=== PATIENT | female | born 2000 | race African-American/Black ===

== ENCOUNTER 2022-05-04 21:57 | Inpatient (IN) ==
[2022-05-04] MEDS ORDERED: ceFAZolin 1,000 MG VIAL ONE (22:09)
[2022-05-04] MEDS ORDERED: SODIUM CHLORIDE 0.9% 1,000 ML IV STA (22:13)
[2022-05-04] MEDS ORDERED: DIPH/TET/ACEL PERT BOOSTER VACCINE 0.5 ML VIAL IM ONE (22:13)
[2022-05-04] MEDS ORDERED: SODIUM CHLORIDE 0.9% 100 ML IV ONE (22:16)
[2022-05-04 22:20] LABS: Basophils % 0.4 % (0.0-0.8); Eosinophils # 0.3 10*3/uL (0.0-0.87); Eosinophils % 3.1 % (0.00-10.9); Immature Granulocytes % 0.2 %; Immature Granulocytes Absolute 0.02 #; Lymphocytes # 5.4 10*3/uL (1.4-4.0); Lymphocytes % 60.1 % (21.3-54.2); Mean Corpuscular HGB Conc 32.4 GM/DL (32-36); Mean Corpuscular Volume 83.7 FL (87-102); Mean Platelet Volume 10.5 FL (9.6-12.0); Monocytes # 0.7 10*3/uL (0.11-0.8); Monocytes % 7.7 % (1.7-12.7); Neutrophils % 28.5 % (38.7-73.9); Platelet Count 315 T/CUMM (130-400); Red Blood Count 4.06 MC/CUMM (3.8-5.5); Red Cell Distribution Width 14.2 % (9.3-17.3)
[2022-05-04] MEDS ORDERED: SODIUM CHLORIDE 0.9% 2,000 ML IV STA ×2 (22:30→22:47)
[2022-05-04 22:35] LABS: Albumin 3.5 G/DL (3.4-5.0); Bilirubin,Total 0.5 MG/DL (0.20-1.00); Calcium 9.1 MG/DL (8.5-10.1); Osmolality,Calculated 277.4 MOS/KG (273-304); Potassium 3.8 MMOL/L (3.5-5.1); Total Protein 7.1 G/DL (6.4-8.2)
[2022-05-04] MEDS ORDERED: fentaNYL 100 MCG/2 ML VIAL ONE (22:36)
[2022-05-04] MEDS ORDERED: fentaNYL 100 MCG/2 ML VIAL IV STA (22:37)
[2022-05-04 22:46] LABS: Eosinophils 1 % (0-10); Lymphocytes 62 % (20-55); Total Cells Counted 100
[2022-05-04 22:47] LABS: Platelet Estimate Normal
[2022-05-04] MEDS ORDERED: ACETAMINOPHEN 325 MG TABLET PO PRN (23:28)
[2022-05-04] MEDS ORDERED: MORPHINE 2 MG/1 ML SYRINGE IV PRN (23:28)
[2022-05-04] MEDS ORDERED: MORPHINE 2 MG/1 ML SYRINGE IV STA (23:29)
[2022-05-04 23:37] LABS: Mucus,Urine Occasional /LPF (Occasional); RBC,Urine <1 /HPF (0-4); Squamous Epithelial Cell,Urine Occasional /HPF (0-10)
[2022-05-04 23:38] LABS: Bilirubin,Urine Negative (Negative); Glucose,Urine (UA) Negative (Negative); Ketones,Urine Negative (Negative); Nitrite,Urine Negative (Negative); Protein,Urine Negative (Negative); Urine Appearance Clear (Clear); Urine Color Yellow (Yellow); Urine Specific Gravity 1.015 (1.001-1.035)
[2022-05-04 23:39] LABS: Blood, Urine Negative (Negative); Urine Urobilinogen 0.2 eU/dL (<2.0)
[2022-05-04] MEDS: ONDANSETRON 4 MG/2 ML VIAL IV PRN (23:42)
[2022-05-04 23:59] LABS: Barbiturates Screen,Urine Negative (Negative); Benzodiazepines Screen,Urine Negative (Negative); Cannabinoid Screen,Urine Positive (Negative); Opiate Screen,Urine Negative (Negative); Phencyclidine Screen,Urine Negative (Negative)
[2022-05-05] MEDS: DEXTROSE 5% LACTATED RINGERS 1,000 ML IV SCH ×3 (00:35→14:33)
[2022-05-05] MEDS: PROMETHAZINE 25 MG/1 ML VIAL IM PRN ×2 (01:13→14:59)
[2022-05-05] MEDS: PANTOPRAZOLE 40 MG TABLET PO SCH (10:04)
[2022-05-05] MEDS: ONDANSETRON 4 MG/2 ML VIAL IV PRN ×2 (11:28→20:53)
[2022-05-06] MEDS ORDERED: BACITRACIN OINT 0.9 GM PACK TOP SCH (09:00)
[2022-05-06] MEDS: PANTOPRAZOLE 40 MG TABLET PO SCH (10:13)
[2022-05-06 11:03] VITALS: BP 87/52
== END 2022-05-06 11:40 | disposition home or self-care (01) | DRG 384 ==
LOC: N.ED 21:57 → N.3E 23:02
PROVIDERS: ADMIT Student in an Organized Health Care Education/Training Program; ATTEND Student in an Organized Health Care Education/Training Program